=== PATIENT | female | born 1990 | race Caucasian/White ===

== ENCOUNTER 2020-10-17 17:41 | Emergency (ER) | payer OTHER, SELFPAY ==
[2020-10-17 17:45] VITALS: BP 125/78; PULSE 77; RESP 18; TEMP 37.2; O2SAT 100
--- NOTE | 2020-10-17 17:52 | ED.LOWEXIN ---
HPI - Extremity Injury (Lower) General Chief Complaint: Extremity Injury, Lower Stated Complaint: right knee pain Time Seen by Provider: 10/17/20 17:53 Source: patient and RN notes reviewed History of Present Illness HPI Narrative: Patient is a 30-year-old female who presents the urgent care with complaints of right knee pain since . Patient states that she was walking on uneven roads in high heels and that is when she noticed the pain had started. Patient states that she has been using ice, heat, Tylenol, ibuprofen without much improvement. Patient states that she did plan to follow-up with her PCP but was needing immediate paperwork for work. Patient states that she is needing [facility] paperwork filled out . Patient denies of any fall, trauma, known injury. No other acute complaints. No acute distress noted. Patient aware of the plan of care. Some parts of this dictation were generated by voice recognition software and may contain typographical and/or grammatical inaccuracies. Related Data Home Medications Medication Instructions Recorded Confirmed norethindrone acetate 1 mg-ethinyl 1 tablet PO DAILY 11/16/19 10/17/20 estradiol 20 mcg tablet Allergies Allergy/AdvReac Type Severity Reaction Status Date / Time No Known Allergies Allergy Mild Verified 10/17/20 17:44 Review of Systems Review of Systems: Narrative: CONSTITUTIONAL: Denies fever, chills, or sweats. EYES: Denies visual changes, redness, or discharge. ENT: Denies rhinorrhea, congestion, sore throat, or otalgia. CARDIOVASCULAR: Denies chest pain, palpitations, or edema. RESPIRATORY: Denies cough or dyspnea. GASTROINTESTINAL: Denies abdominal pain, nausea, vomiting, or diarrhea. GENITOURINARY: Denies dysuria or hematuria. SKIN: Denies rash or itching. MUSCULOSKELETAL: Reports of anterior right knee pain NEUROLOGIC: Denies headache, numbness, or weakness. All other systems reviewed are negative, except as documented in HPI. [facility] Past Medical History Medical History (Updated 10/17/20 @ 18:11 by ELA Esteban) Anxiety Broken arm Diarrhea IBS (irritable bowel syndrome) Family History Family History (Updated 12/02/18 @ 08:36 by DOCTOR UNKNOWN) Mother Patient's mother is in good health Father Patient's father is in good health Sibling Patient's sister is in good health Social History Social History (Updated 11/16/19 @ 10:56 by Jessica Jiang [facility]) Smoking status: Never smoker Alcohol intake: current Comments At the time of my signature, I reviewed and agree with the nursing past medical, surgical, social, and family history. There is no relevant family history pertinent to the patient complaint. Exam Narrative: Exam Narrative: GENERAL: This is a well-nourished, well-developed patient, in no apparent distress. HEAD: normocephalic, atraumatic. EYES: PERRL. Sclera clear/white. Vision is grossly intact. EARS: External ears normal NOSE: External nose normal with no obvious nasal discharge, nares without redness, no rhinorrhea. THROAT: Mucous membranes moist NECK: Neck supple SKIN: warm, intact with no suspicious lesions or rash, good texture and turgor. NEURO: awake, alert, and oriented to person, place and time. There were no obvious focal neurologic abnormalities. EXTREMITIES: No obvious edema, ecchymosis, erythema noted to the right lower extremity/knee. Positive strong right pedal pulse with capillary refill less than 2 seconds. Range of motion to right lower extremity within normal limits. No obvious Tate's cyst. Anterior drawer negative. Very mild tenderness surrounding the patellar aspect on the medial aspect of the right knee. Reports of increased pain with ambulation/bending of the knee Course Vital Signs Vital signs: Vital Signs Temperature 98.9 F 10/17/20 17:45 Pulse Rate 77 10/17/20 17:45 Respiratory Rate 18 10/17/20 17:45 Blood Pressure 125/78 10/17/20 17:45 Pulse Oximetry 100
[2020-10-17 18:12] VITALS: BP 125/78; PULSE 77; RESP 18; TEMP 37.2; O2SAT 100
== END 2020-10-17 18:15 | disposition home or self-care (01) ==
PROVIDERS: Emergency Provider Nurse Practitioner Family; PCP Internal Medicine
DX: M76.9 Unspecified enthesopathy, lower limb, excluding foot (principal)
CPT/HCPCS: 99213; G0463

== ENCOUNTER → 2021-12-02 01:34 | Outpatient (CLI) | payer OTHER, SELFPAY ==
[2021-12-02 21:23] LABS: SARS-CoV-2 RNA PCR Negative
== END ==
PROVIDERS: PCP Internal Medicine; Visit Provider Nurse Practitioner
DX: Z20.822 Contact with and (suspected) exposure to COVID-19 (principal)
CPT/HCPCS: C9803; U0003; U0005

== ENCOUNTER 2023-03-31 13:13 | Outpatient (CLI) | payer OTHER, SELFPAY ==
--- NOTE | ~2023-03-31 | XR_ITS ---
EXAMINATION: XR facial bones min 3V DATE: 03/31/2023 13:41 INDICATION: Face injury. TECHNIQUE: 5 views of the nasal bones were obtained. COMPARISON: None. FINDINGS: There is rightward deviation of the nasal septum. There are fracture deformities of the clarence al bones. IMPRESSION: 1. Fracture deformities of the nasal bones, which may be chronic. Reviewed, dictated and finalized at location A.
== END 2023-03-31 13:14 | disposition home or self-care (01) ==
PROVIDERS: PCP Internal Medicine; Visit Provider Clinical Nurse Specialist
DX: S02.2XXA Fracture of nasal bones, initial encounter for closed fracture (principal); T14.90XA Injury, unspecified, initial encounter
CPT/HCPCS: 70150

== ENCOUNTER 2023-04-22 05:46 | Day surgery (SDC) | payer OTHER, SELFPAY ==
[2023-04-15 08:44] VITALS: BMI 26.7
--- NOTE | 2023-04-21 14:37 | P.PNAN_ITS ---
Anes - Initial Pre Proc Eval Procedure: Operation Date: 04/22/23 07:30 Proposed Procedures p Closed Reduction Nasal Fracture - Wilson Haley MD Date/Time: 04/21/23 14:37 Surgeon: Wilson Haley MD Pre Op Diagnosis: Nasal Fracture Patient Data Age: 33 Gender: F Height: 1.65 m Weight: 73 kg Allergies Allergy/AdvReac Type Severity Reaction Status Date / Time No Known Allergies Allergy Mild Verified 04/22/23 06:53 Home Medications Medication Instructions Recorded Confirmed Type norethindrone acetate 1 mg-ethinyl 1 tablet PO DAILY 11/16/19 04/22/23 History estradiol 20 mcg tablet (Loestrin) sertraline 50 mg tablet See Rx Instructions .Route 02/25/23 04/22/23 Rx .COMPLEX #90 tabs trazodone 50 mg tablet 50 mg PO QHS PRN insomnia #30 tabs 03/27/23 04/22/23 Rx Patient hx anesthesia problems: none Family hx anesthesia problems: none Results Review: All pre-operative results and documents have been reviewed as part of the pre- operative evaluation. [facility] Past Medical History Medical History Anxiety Broken arm Diarrhea IBS (irritable bowel syndrome) Family History Family History Mother Patient's mother is in good health Diabetes mellitus Father Patient's father is in good health Sibling Patient's sister is in good health Social History Social History Smoking status: Current every day smoker Tobacco type: e-cigarettes/vaping Alcohol intake: current Alcohol use details: socially Substance use: never Substance use type: does not use Lack of Transportation: No Lack of Food: Never True Current Housing: I Have Housing Concerned About Future Housing: No Difficulty Paying Gas/Electric Bills: No Difficulty Paying for Meds: No Currently Unemployed: No Education: High School Diploma/GED Difficulty w/ Childcare or Family Care: No Living arrangements: alone Spiritual care concerns: No Anes - Eval Final PreProcedure Day of Procedure 04/21/23 14:37 Patient weight: overweight Heart: regular rate and rhythm Lungs: clear to auscultation Airway: Mallampati scale class II Neurological: alert and oriented Last oral intake: >/= 8 hours ASA classification: II Emergent: no Anesthetic plan: proceed Anesthesia type and monitoring: general ETT and standard monitoring Results Review: All pre-operative results and documents have been reviewed as part of the pre- operative evaluation. Informed Consent: The patient's anesthetic plan and its attendant risks and benefits were discussed with the patient/family/POA. Questions were solicited and answers provided to the satisfaction of the patient/family/POA.
[2023-04-22] MEDS: ACETAMINOPHEN 500 MG TABLET 1000 MG PO (06:25)
--- NOTE | 2023-04-22 06:34 | PM.IMHP ---
H&P: HPI History of Present Illness Date/Time: 04/22/23 06:34 Chief Complaint: nasal fx Review of Systems Review of Systems: All systems reviewed & are unremarkable except as noted in HPI and below ENT: Reports system reviewed and no additional complaints, except as documented and Reports nasal obstruction PMFSH Past Medical History Medical History Anxiety Broken arm Diarrhea IBS (irritable bowel syndrome) Family History Family History Mother Patient's mother is in good health Diabetes mellitus Father Patient's father is in good health Sibling Patient's sister is in good health Social History Social History Smoking status: Current every day smoker Tobacco type: e-cigarettes/vaping Alcohol intake: current Alcohol use details: socially Substance use: never Substance use type: does not use Lack of Transportation: No Lack of Food: Never True Current Housing: I Have Housing Concerned About Future Housing: No Difficulty Paying Gas/Electric Bills: No Difficulty Paying for Meds: No Currently Unemployed: No Education: High School Diploma/GED Difficulty w/ Childcare or Family Care: No Living arrangements: alone Spiritual care concerns: No Meds Home Medications and Allergies Home Medications Medication Instructions Recorded Confirmed Type norethindrone acetate 1 mg-ethinyl 1 tablet PO DAILY 11/16/19 04/22/23 History estradiol 20 mcg tablet (Loestrin) sertraline 50 mg tablet See Rx Instructions .Route 02/25/23 04/22/23 Rx .COMPLEX #90 tabs trazodone 50 mg tablet 50 mg PO QHS PRN insomnia #30 tabs 03/27/23 04/22/23 Rx Allergies Allergy/AdvReac Type Severity Reaction Status Date / Time No Known Allergies Allergy Mild Verified 04/22/23 06:53 Exam Narrative: the nose was examined and the septum was deviated with partial obstruction to the affect that side the turbinates were swollen there was swelling on the other side of the turbinate plan septoplasty possible turbinectomy Assessment and Plan Assessment and plan (1) Closed displaced fracture of nasal bone: Code(s): S02.2XXA - Fracture of nasal bones, initial encounter for closed fracture Status: Acute Plan closed reduction nasalfx
[2023-04-22 06:35] VITALS: BP 117/77; PULSE 64; RESP 18; TEMP 36.5; O2SAT 100
[2023-04-22] MEDS: LACTATED RINGERS 1,000 ML 30 ML IV CONT (06:35)
--- NOTE | 2023-04-22 06:40 | WPDHPUPDATE1 ---
History and Physical Update Update Date/Time: 04/22/23 06:40 History and Physical has been reviewed, including an updated exam of the patient. There are NO changes in the patient's condition. Risks, benefits, and alternatives have been discussed and questions answered. Patient agrees to proceed with procedure.
--- NOTE | 2023-04-22 06:43 | WPDHPUPDATE1 ---
History and Physical Update Update Date/Time: 04/22/23 06:43 History and Physical has been reviewed, including an updated exam of the patient. There are NO changes in the patient's condition. Risks, benefits, and alternatives have been discussed and questions answered. Patient agrees to proceed with procedure.
[2023-04-22] MEDS: OXYMETAZOLINE HCL 0.05% NAS 15 ML BTL (*BKC) 1 SPRAY NASAL (07:35)
[2023-04-22 07:55] VITALS: BP 120/69; PULSE 90; RESP 16; TEMP 36.6; O2SAT 100
--- NOTE | 2023-04-22 07:57 | P.OP_ITS ---
Procedure Note - Detailed Date of Procedure 04/22/23 Pre-op Diagnosis Nasal Fracture Post-op Diagnosis Same Procedure Performed Close reduction nasal fracture Surgeon Wilson Haley MD Anesthesia General Description of Procedure Afrin impregnated cottonoids placed in both sides of the nose of flat instrum ent was placed on the right nares and the nasal bone popped into position Surgicel placed in an aqua plastic dressing placed on Estimated Blood Loss 0 Drains No Packing Yes Pathology None sent Complications None Condition Stable Disposition PACU
[2023-04-22 08:10] VITALS: BP 110/83; PULSE 66; RESP 14; O2SAT 100
[2023-04-22 08:24] VITALS: BP 118/74; PULSE 64; RESP 12; O2SAT 100
--- NOTE | 2023-04-22 08:27 | SUR.PHASEI ---
PT AWAKE AND ALERT. DENIES PAIN OR NAUSEA.
[2023-04-22 08:30] VITALS: BP 118/67; PULSE 65; RESP 14; O2SAT 100
--- NOTE | 2023-04-22 08:31 | WPDANESPN ---
Anes - Prog Note Post-Op Date/Time: 04/22/23 08:31 Cardiovascular status: normal Respiratory status: normal Airway patency: baseline Mental status: baseline Post-Op hydration status: normal Vital Signs: Last Vital Signs Temp 36.6 C 04/22/23 07:55 Pulse 64 04/22/23 08:24 Resp 12 04/22/23 08:24 BP 118/74 04/22/23 08:24 Pulse Ox 100 04/22/23 08:24 O2 Del Method Room Air 04/22/23 08:24 O2 Flow Rate 6 04/22/23 08:10 Pain Score (VAS): 1 I/O: Intake & Output 04/21/23 04/22/23 04/22/23 23:59 07:59 15:59 Intake Total 0 100 Balance 0 100 Post-procedural complaints: none Patient Feedback: Patient satisfied with anesthetic care. Other Findings: Patient vital signs back to baseline. Patient denies nausea and vomiting. Patient's pain under control. Patient OK for discharge.
[2023-04-22 08:52] VITALS: BP 109/62; PULSE 58; RESP 16
== END 2023-04-22 09:08 | disposition home or self-care (01) ==
PROVIDERS: PCP Internal Medicine; Visit Provider Otolaryngology
PROC: 0NSBXZZ Reposition Nasal Bone, External Approach (ICD-10-PCS; CPT 21315; principal; 2023-04-22 07:30)
DX: S02.2XXA Fracture of nasal bones, initial encounter for closed fracture (principal)
CPT/HCPCS: 21320

== ENCOUNTER 2024-06-20 13:02 | Emergency (ER) | payer OTHER, SELFPAY ==
--- NOTE | ~2024-06-20 | XR_ITS ---
XR ankle LT min 3V 06/20/2024 13:42 INDICATION: Left ankle pain PROCEDURE: 4 views left ankle COMPARISON: No prior studies for comparison. FINDINGS: Fracture, dislocation or subluxation is not identified. Ankle mortise intact. The soft tiss ues appear within normal limits. No foreign bodies are identified. IMPRESSION: 1: NO ACUTE BONE OR JOINT ABNORMALITY IDENTIFIED. Reviewed, dictated and finalized at location B.
[2024-06-20 13:20] VITALS: BP 105/68; PULSE 71; RESP 16; TEMP 36.6; O2SAT 100
--- NOTE | 2024-06-20 14:16 | ED.LOWEXIN ---
HPI - Extremity Injury (Lower) General Chief Complaint: Extremity Injury, Lower Stated Complaint: left ankle injury Time Seen by Provider: 06/20/24 14:06 Source: patient and RN notes reviewed Mode of arrival: ambulatory Limitations: no limitations History of Present Illness HPI Narrative: Patient presents today complaining of left ankle pain. States she was walking down some steps last night and missed the last step, rolling her ankle. Denies numbness or tingling. Currently rates her pain 4/10, which increases with weight-bearing. She has been taking ibuprofen and using ice with mild relief. Related Data Home Medications Medication Instructions Recorded Confirmed norethindrone acetate 1 mg-ethinyl 1 tablet PO DAILY 11/16/19 06/20/24 estradiol 20 mcg tablet (Loestrin) Allergies Allergy/AdvReac Type Severity Reaction Status Date / Time No Known Allergies Allergy Mild Verified 06/20/24 13:32 Review of Systems Review of Systems: CONSTITUTIONAL: Denies body aches, fever, chills, or sweats. EYES: Denies visual changes, redness, or discharge. ENT: Denies rhinorrhea, congestion, sore throat, or otalgia. CARDIOVASCULAR: Denies chest pain, palpitations, or edema. RESPIRATORY: Denies cough or dyspnea. GASTROINTESTINAL: Denies abdominal pain, nausea, vomiting, or diarrhea. GENITOURINARY: Denies dysuria or hematuria. SKIN: Denies rash, itching, or wounds. MUSCULOSKELETAL: Denies back pain, or myalgia.+ left ankle pain NEUROLOGIC: Denies headache, numbness, tingling, or weakness. PSYCH: Denies depression or anxiety. [facility] Past Medical History Medical History Acute sinusitis Anxiety Broken arm Closed displaced fracture of nasal bone Diarrhea Dysuria Facial trauma History of [facility] Hospital discharge follow-up IBS (irritable bowel syndrome) Nasal fracture Right knee pain Sore throat STD exposure Toe pain Family History Family History Mother Patient's mother is in good health Diabetes mellitus Father Patient's father is in good health Sibling Patient's sister is in good health Social History Social History Smoking status: Current every day smoker Tobacco type: e-cigarettes/vaping Alcohol intake: current Alcohol use details: socially Substance use: never Substance use type: does not use Lack of Transportation: No Lack of Food: Never True Current Housing: I Have Housing Concerned About Future Housing: No Difficulty Paying Gas/Electric Bills: No Difficulty Paying for Meds: No Currently Unemployed: No Education: High School Diploma/GED Difficulty w/ Childcare or Family Care: No Living arrangements: alone Spiritual care concerns: No Comments At time of signature, I have reviewed and agree with nursing past medical, surgical, social and family history unless otherwise noted. Please see nursing chart for further information. There is no relevant family history pertinent to the presenting complaint Exam Narrative: GENERAL: Well-appearing, well-nourished, and in no acute distress. HEAD: Normocephalic, atraumatic. EYES: EOMI. No redness or drainage. Conjunctivae normal. ENT: Mucous membranes pink and moist. NECK: Normal AROM. CHEST: No respiratory distress. EXTREMITIES: Left ankle: Tenderness and mild edema medially, extending anteriorly. No tenderness laterally. Distal sensation intact. Capillary refill normal. Pedal pulse normal. Pain increases with P ROM of the ankle. SKIN: Warm, dry, no rash. Capillary refill normal. Normal skin turgor. NEURO: No focal deficits. Alert and oriented x3. Gait steady. PSYCH: Normal affect. No signs of depression or anxiety. Course Course Level of Care: Express Care Visit Vital Signs Vital signs: Vital Signs Temperature
== END 2024-06-20 14:30 | disposition home or self-care (01) ==
PROVIDERS: Emergency Provider Nurse Practitioner; PCP Internal Medicine
DX: S93.402A Sprain of unspecified ligament of left ankle, initial encounter (principal); X50.9XXA Other and unspecified overexertion or strenuous movements or postures, initial encounter; E28.2 Polycystic ovarian syndrome; F17.290 Nicotine dependence, other tobacco product, uncomplicated
CPT/HCPCS: 73610; 99213; G0463